=== PATIENT | female | born 1970 | race African-American/Black ===

== ENCOUNTER 2019-03-02 21:39 | Emergency (ER) | payer MEDICAID, OTHER ==
[~2019-03-02] VITALS: Ht 167.6 cm; Wt 51.0 kg
[2019-03-03] MEDS ORDERED: IBUPROFEN 600MG TABLET PO ONE (00:45)
[2019-03-03 01:02] VITALS: BP 133/100
== END 2019-03-03 01:05 | disposition home or self-care (01) ==
LOC: ER 03-03 00:44
DX: G44.209 Tension-type headache, unspecified, not intractable (principal); I10 Essential (primary) hypertension; F12.10 Cannabis abuse, uncomplicated; F17.200 Nicotine dependence, unspecified, uncomplicated
CPT/HCPCS: 99283